=== PATIENT | female | born 1940 | race Caucasian/White ===

== ENCOUNTER 2017-10-30 16:28 | Emergency (ER) | payer OTHER ==
[2017-10-30 17:05] LABS: WHITE BLOOD COUNT 8.6 10^3/ul (4.8-10.8)
[2017-10-30 17:05] LABS: HEMATOCRIT 36.1 % (37.0-47.0); HEMOGLOBIN 11.9 g/dl (12.0-16.0); MEAN CORPUSCULAR HEMOGLOBIN 30.7 pg (29.0-33.0); MEAN CORPUSCULAR VOLUME 93.3 fl (82.0-101.0); MEAN PLATELET VOLUME 9.2 fl (7.4-10.4); PLATELET COUNT 273 10^3/UL (140-415); RED BLOOD COUNT 3.87 10^6/ul (4.20-5.40); RED CELL DISTRIBUTION WIDTH 13.2 % (11.5-14.5)
[2017-10-30 17:08] LABS: ADD MAN DIFF? YES
[2017-10-30] MEDS: DIAZEPAM 5 MG/ML SYG IV (17:11)
[2017-10-30] MEDS: SOD CHLORIDE 0.9% 1,000 ML IV (17:11)
[2017-10-30 17:25] LABS: INR 0.86; PROTIME 11.8 Sec (11.9-14.9); PT RATIO 0.9
[2017-10-30 17:29] LABS: ANION GAP 16 (8-16); BLOOD UREA NITROGEN 22 mg/dl (7-20); CALCIUM 9.2 mg/dl (8.4-10.2); CARBON DIOXIDE 23 mmol/L (21-31); CHLORIDE 103 mmol/L (97-110); CREATININE 0.79 mg/dl (0.44-1.00); GLUCOSE 167 mg/dl (70-220); POTASSIUM 5.6 mmol/L (3.5-5.1); SODIUM 136 mmol/L (135-144)
[2017-10-30] MEDS ORDERED: ONDANSETRON 4 MG INJ (17:37)
[2017-10-30 17:56] LABS: TROPONIN-I < 0.012 ng/ml (0.000-0.120)
[2017-10-30 18:22] LABS: BAND NEUTROPHILS % (M) 1 % (0-4); EOSINOPHILS % (M) 3 % (0-7); LYMPHOCYTES #M 4.7 10^3/ul (0.8-2.9); LYMPHOCYTES % (M) 55 % (15-51); MONOCYTE #M 0.6 10^3/ul (0.3-0.9); MONOCYTES % (M) 7 % (0-11); PLATELET ESTIMATE NORMAL; SEG NEUT #M 2.9 10^3/ul (1.6-7.5); SEGMENTED NEUTROPHILS (M) % 34 % (39-77); SMUDGE%M 3 % (0-0)
[2017-10-30] MEDS: ONDANSETRON 4 MG INJ IV (18:25)
[2017-10-30 19:39] LABS: ADD UMIC YES; UR ASCORBIC ACID NEGATIVE (NEGATIVE); UR BILIRUBIN (Dip) NEGATIVE (NEGATIVE); UR BLOOD (Dip) NEGATIVE (NEGATIVE); UR CLARITY CLEAR (CLEAR); UR COLOR YELLOW (YELLOW); UR GLUCOSE (Dip) NEGATIVE (NEGATIVE); UR KETONES (Dip) NEGATIVE (NEGATIVE); UR LEUKOCYTE ESTERASE (Dip) 1+ Leu/ul (NEGATIVE); UR NITRITE (Dip) NEGATIVE (NEGATIVE); UR RBC 1 /HPF (0-5); UR SPECIFIC GRAVITY (Dip) 1.015 (1.003-1.030); UR TOTAL PROTEIN (Dip) NEGATIVE (NEGATIVE); UR UROBILINOGEN (Dip) NEGATIVE (NEGATIVE); UR WBC 4 /HPF (0-5)
== END 2017-10-30 21:12 | disposition home or self-care (01) ==
LOC: E/R 16:28
DX: R42 Dizziness and giddiness (principal); D50.9 Iron deficiency anemia, unspecified; E87.5 Hyperkalemia; E86.0 Dehydration; R40.2142 Coma scale, eyes open, spontaneous, at arrival to emergency department; R40.2252 Coma scale, best verbal response, oriented, at arrival to emergency department; R40.2362 Coma scale, best motor response, obeys commands, at arrival to emergency department; J44.9 Chronic obstructive pulmonary disease, unspecified
CPT/HCPCS: 36415; 70450; 71045; 80048; 81001; 82962; 84484; 85025; 85610; 93005; 96374; 96375; 99285-25

== ENCOUNTER 2018-10-25 16:48 | Emergency (ER) | payer OTHER ==
[2018-10-25 17:44] LABS: URINE BLOOD (Dip) POC Negative (NEGATIVE); URINE GLUCOSE (Dip) POC Negative (NEGATIVE); URINE KETONES (Dip) POC Negative (NEGATIVE); URINE LEUKOCYTE EST (Dip) POC Negative (NEGATIVE); URINE NITRITE (Dip) POC Negative (NEGATIVE); URINE TOTAL PROTEIN POC Negative (NEGATIVE)
== END 2018-10-25 18:05 | disposition home or self-care (01) ==
LOC: FTE 16:48
DX: J32.9 Chronic sinusitis, unspecified (principal); J44.9 Chronic obstructive pulmonary disease, unspecified; R35.8 Other polyuria
CPT/HCPCS: 81003; 99283

== ENCOUNTER 2018-12-09 17:27 | Inpatient (IN) | payer OTHER ==
[2018-12-09] MEDS: CEFTRIAXONE 1 GM/50 ML (PMX) 50 ML IVPB (17:52)
[2018-12-09] MEDS: ACETAMINOPHEN 325 MG TAB PO (17:52)
[2018-12-09] MEDS: SODIUM CHLORIDE 0.9% 1L BAG IV* (17:52)
[2018-12-09 17:53] LABS: ADD UMIC YES; UR ASCORBIC ACID NEGATIVE (NEGATIVE); UR BILIRUBIN (Dip) NEGATIVE (NEGATIVE); UR BLOOD (Dip) 1+ mg/dL (NEGATIVE); UR CLARITY CLEAR (CLEAR); UR COLOR STRAW (YELLOW); UR GLUCOSE (Dip) NEGATIVE (NEGATIVE); UR KETONES (Dip) NEGATIVE (NEGATIVE); UR LEUKOCYTE ESTERASE (Dip) 1+ Leu/ul (NEGATIVE); UR NITRITE (Dip) NEGATIVE (NEGATIVE); UR RBC 1 /HPF (0-5); UR SPECIFIC GRAVITY (Dip) 1.005 (1.003-1.030); UR TOTAL PROTEIN (Dip) NEGATIVE (NEGATIVE); UR UROBILINOGEN (Dip) NEGATIVE (NEGATIVE); UR WBC 18 /HPF (0-5)
[2018-12-09 17:54] LABS: WHITE BLOOD COUNT 10.3 10^3/ul (4.8-10.8)
[2018-12-09 17:54] LABS: ADD MAN DIFF? NO; BASOPHIL # 0.1 10^3/ul (0.0-0.1); BASOPHILS % 0.5 % (0.0-2.0); EOSINOPHILS % 0.3 % (0.0-7.0); HEMATOCRIT 37.8 % (37.0-47.0); HEMOGLOBIN 12.3 g/dl (12.0-16.0); LYMPHOCYTES # 2.3 10^3/ul (0.8-2.9); LYMPHOCYTES % 21.8 % (15.0-51.0); MEAN CORPUSCULAR HEMOGLOBIN 29.9 pg (29.0-33.0); MEAN CORPUSCULAR HGB CONC 32.5 g/dl (32.0-37.0); MEAN PLATELET VOLUME 9.4 fl (7.4-10.4); MONOCYTE # 0.8 10^3/ul (0.3-0.9); MONOCYTES % 7.3 % (0.0-11.0); NEUTROPHIL # 7.2 10^3/ul (1.6-7.5); NEUTROPHILS % 69.7 % (39.0-77.0); PLATELET COUNT 223 10^3/UL (140-415); RED BLOOD COUNT 4.11 10^6/ul (4.20-5.40); RED CELL DISTRIBUTION WIDTH 14.2 % (11.5-14.5)
[2018-12-09 18:11] LABS: ALANINE AMINOTRANSFERASE 22 IU/L (13-69); ALBUMIN 4.6 g/dl (3.3-4.9); ALBUMIN/GLOBULIN RATIO 1.24; ALKALINE PHOSPHATASE 64 IU/L (42-121); ANION GAP 11 (5-13); ASPARTATE AMINO TRANSFERASE 25 IU/L (15-46); BILIRUBIN,INDIRECT 0.6 mg/dl (0-1.1); BILIRUBIN,TOTAL 0.6 mg/dl (0.2-1.3); BLOOD UREA NITROGEN 12 mg/dl (7-20); CALCIUM 9.4 mg/dl (8.4-10.2); CARBON DIOXIDE 27 mmol/L (21-31); CHLORIDE 100 mmol/L (97-110); CREATININE 0.86 mg/dl (0.44-1.00); GLUCOSE 135 mg/dl (70-220); SODIUM 138 mmol/L (135-144); TOTAL PROTEIN 8.3 g/dl (6.1-8.1)
[2018-12-09 18:13] LABS: PARTIAL THROMBOPLASTIN TIME 25.5 Sec (23.0-35.0); PROTIME 12.3 Sec (11.9-14.9)
[2018-12-09 18:23] LABS: TROPONIN-I < 0.012 ng/ml (0.000-0.120)
[2018-12-09] MEDS: ONDANSETRON 4 MG INJ IV (19:06)
[2018-12-09] MEDS: morphine 2 MG INJ IV (19:06)
[2018-12-09] MEDS: LORATADINE/PSEUDOEPHED (SR) TAB PO (20:05)
[2018-12-09 20:06] LABS: LACTIC ACID 0.8 mmol/L (0.5-2.0)
[2018-12-09 22:36] LABS: LACTIC ACID 0.6 mmol/L (0.5-2.0)
[2018-12-10] MEDS ORDERED: ALBUTEROL 18 GM INHALER INH (01:00)
[2018-12-10] MEDS ORDERED: NACL 0.9% 3 ML SYG IV (01:00)
[2018-12-10] MEDS ORDERED: HYDROCODONE/APAP (5/325) TAB PO (01:00)
[2018-12-10] MEDS: SOD CHLORIDE 0.9% 1,000 ML IV ×2 (01:01→13:11)
[2018-12-10] MEDS: HYDROCODONE/APAP (5/325) TAB PO ×2 (01:06→13:10)
[2018-12-10 05:09] LABS: ADD MAN DIFF? NO
[2018-12-10 05:22] LABS: WHITE BLOOD COUNT 8.1 10^3/ul (4.8-10.8)
[2018-12-10 05:22] LABS: BASOPHILS % 0.5 % (0.0-2.0); EOSINOPHILS % 0.2 % (0.0-7.0); HEMATOCRIT 33.6 % (37.0-47.0); HEMOGLOBIN 11.1 g/dl (12.0-16.0); LYMPHOCYTES # 1.3 10^3/ul (0.8-2.9); LYMPHOCYTES % 16.5 % (15.0-51.0); MEAN CORPUSCULAR HEMOGLOBIN 30.5 pg (29.0-33.0); MEAN CORPUSCULAR VOLUME 92.3 fl (82.0-101.0); MEAN PLATELET VOLUME 9.4 fl (7.4-10.4); MONOCYTE # 0.7 10^3/ul (0.3-0.9); MONOCYTES % 8.2 % (0.0-11.0); NEUTROPHILS % 74.2 % (39.0-77.0); PLATELET COUNT 178 10^3/UL (140-415); RED BLOOD COUNT 3.64 10^6/ul (4.20-5.40); RED CELL DISTRIBUTION WIDTH 14.2 % (11.5-14.5)
[2018-12-10 05:46] LABS: ALANINE AMINOTRANSFERASE 19 IU/L (13-69); ALBUMIN 3.6 g/dl (3.3-4.9); ALBUMIN/GLOBULIN RATIO 1.24; ALKALINE PHOSPHATASE 56 IU/L (42-121); ANION GAP 5 (5-13); ASPARTATE AMINO TRANSFERASE 21 IU/L (15-46); BILIRUBIN,INDIRECT 0.6 mg/dl (0-1.1); BILIRUBIN,TOTAL 0.6 mg/dl (0.2-1.3); BLOOD UREA NITROGEN 9 mg/dl (7-20); CALCIUM 8.4 mg/dl (8.4-10.2); CARBON DIOXIDE 26 mmol/L (21-31); CHLORIDE 110 mmol/L (97-110); CREATININE 0.65 mg/dl (0.44-1.00); GLUCOSE 123 mg/dl (70-220); MAGNESIUM 2.2 mg/dl (1.7-2.5); PHOSPHORUS 2.9 mg/dl (2.5-4.9); POTASSIUM 3.8 mmol/L (3.5-5.1); SODIUM 141 mmol/L (135-144); TOTAL PROTEIN 6.5 g/dl (6.1-8.1)
[2018-12-10] MEDS: MONTELUKAST 10 MG TAB PO (08:38)
[2018-12-10] MEDS: LORATADINE 10 MG TAB PO (08:39)
[2018-12-10] MEDS: FLUTICASONE/VILANTEROL 100-25 INH (08:39)
[2018-12-10] MEDS: HEPARIN 5,000 UNIT/1 ML VIAL SC ×2 (08:41→22:27)
[2018-12-10] MEDS: ONDANSETRON 4 MG INJ IV (10:43)
[2018-12-10] MEDS: ACETAMINOPHEN 325 MG TAB PO ×2 (10:43→22:26)
[2018-12-10] MEDS: metroNIDAZOLE 500 MG TAB NGT ×2 (14:06→22:26)
[2018-12-10] MEDS: FAMOTIDINE 20 MG TAB PO (14:06)
[2018-12-10] MEDS: CEFTRIAXONE 1 GM/50 ML (PMX) 50 ML IVPB (17:15)
[2018-12-10 18:25] LABS: CANCER ANTIGEN 125 8.9 U/ml (0.0-35.0)
[2018-12-10] MEDS ORDERED: ALBUTEROL HFA 8 GM INHALER INH (21:00)
[2018-12-10] MEDS: DOCUSATE SODIUM 100 MG CAP PO (22:26)
[2018-12-11] MEDS: HYDROCODONE/APAP (5/325) TAB PO ×2 (00:47→22:21)
[2018-12-11 05:40] LABS: ADD MAN DIFF? NO
[2018-12-11 05:47] LABS: BASOPHILS % 0.4 % (0.0-2.0); EOSINOPHILS % 0.3 % (0.0-7.0); HEMATOCRIT 33.1 % (37.0-47.0); HEMOGLOBIN 10.6 g/dl (12.0-16.0); LYMPHOCYTES # 1.7 10^3/ul (0.8-2.9); LYMPHOCYTES % 24.9 % (15.0-51.0); MEAN CORPUSCULAR HEMOGLOBIN 30.2 pg (29.0-33.0); MEAN CORPUSCULAR VOLUME 94.3 fl (82.0-101.0); MONOCYTE # 0.7 10^3/ul (0.3-0.9); MONOCYTES % 10.5 % (0.0-11.0); NEUTROPHIL # 4.4 10^3/ul (1.6-7.5); NEUTROPHILS % 63.5 % (39.0-77.0); PLATELET COUNT 181 10^3/UL (140-415); RED BLOOD COUNT 3.51 10^6/ul (4.20-5.40); RED CELL DISTRIBUTION WIDTH 14.4 % (11.5-14.5)
[2018-12-11 05:47] LABS: WHITE BLOOD COUNT 6.9 10^3/ul (4.8-10.8)
[2018-12-11 06:09] LABS: ANION GAP 6 (5-13); BLOOD UREA NITROGEN 9 mg/dl (7-20); CALCIUM 8.5 mg/dl (8.4-10.2); CARBON DIOXIDE 27 mmol/L (21-31); CHLORIDE 107 mmol/L (97-110); CREATININE 0.66 mg/dl (0.44-1.00); GLUCOSE 127 mg/dl (70-220); MAGNESIUM 2.2 mg/dl (1.7-2.5); PHOSPHORUS 3.2 mg/dl (2.5-4.9); POTASSIUM 4.1 mmol/L (3.5-5.1); SODIUM 140 mmol/L (135-144)
[2018-12-11] MEDS: metroNIDAZOLE 500 MG TAB NGT ×3 (06:40→21:40)
[2018-12-11] MEDS: LACTOBACILLUS RHAMNOSUS CAP PO ×2 (08:57→21:41)
[2018-12-11] MEDS: LORATADINE 10 MG TAB PO (08:57)
[2018-12-11] MEDS: FLUTICASONE/VILANTEROL 100-25 INH (08:57)
[2018-12-11] MEDS: DOCUSATE SODIUM 100 MG CAP PO ×2 (08:57→21:41)
[2018-12-11] MEDS: SOD CHLORIDE 0.9% 1,000 ML IV (08:57)
[2018-12-11] MEDS: FAMOTIDINE 20 MG TAB PO ×2 (08:57→21:41)
[2018-12-11] MEDS: MONTELUKAST 10 MG TAB PO (08:57)
[2018-12-11] MEDS: HEPARIN 5,000 UNIT/1 ML VIAL SC ×2 (09:01→21:43)
[2018-12-11] MEDS ORDERED: ALBUTEROL 0.083% (NEB) 2.5 MG/3 ML AMP HHN (13:30)
[2018-12-11] MEDS: CALCIUM CARBONATE 500 MG CHEW TAB PO (17:39)
[2018-12-11] MEDS: CEFTRIAXONE 1 GM/50 ML (PMX) 50 ML IVPB (17:40)
[2018-12-11] MEDS: ACETAMINOPHEN 325 MG TAB PO (17:44)
[2018-12-11] MEDS: ALBUTEROL/IPRATROPIUM (NEB) 3 ML AMP HHN (22:12)
[2018-12-12] MEDS: metroNIDAZOLE 500 MG TAB NGT (06:36)
[2018-12-12] MEDS: ALBUTEROL/IPRATROPIUM (NEB) 3 ML AMP HHN (08:25)
[2018-12-12] MEDS: LORATADINE 10 MG TAB PO (08:31)
[2018-12-12] MEDS: FAMOTIDINE 20 MG TAB PO (08:31)
[2018-12-12] MEDS: LACTOBACILLUS RHAMNOSUS CAP PO (08:31)
[2018-12-12] MEDS: MONTELUKAST 10 MG TAB PO (08:32)
[2018-12-12] MEDS: HEPARIN 5,000 UNIT/1 ML VIAL SC (08:34)
[2018-12-12] MEDS: FLUTICASONE/VILANTEROL 100-25 INH (08:34)
[2018-12-12] MEDS: DOCUSATE SODIUM 100 MG CAP PO (08:35)
[2018-12-12] MEDS: GUAIFENESIN LA 600 MG TABSR PO (11:51)
[2018-12-12] MEDS: LEVOFLOXACIN 500 MG TAB PO (11:51)
[2018-12-12] MEDS: ALBUTEROL HFA 8 GM INHALER INH (11:51)
[2018-12-12] MEDS: BUDESONIDE (NEB) 0.5MG/2ML AMP HHN (12:34)
[2018-12-12] MEDS ORDERED: GUAIFENESIN LA 600 MG TABSR PO (21:00)
[2018-12-13] MEDS ORDERED: LEVOFLOXACIN 250 MG TAB PO (06:00)
== END 2018-12-12 13:38 | disposition home or self-care (01) | DRG 872 ==
LOC: MS1 12-10 00:33 → E/R 17:27 → MS1 19:57
DX: A41.9 Sepsis, unspecified organism (principal); N39.0 Urinary tract infection, site not specified; Z99.81 Dependence on supplemental oxygen; R19.09 Other intra-abdominal and pelvic swelling, mass and lump; D23.9 Other benign neoplasm of skin, unspecified; R32 Unspecified urinary incontinence; J45.909 Unspecified asthma, uncomplicated; K52.9 Noninfective gastroenteritis and colitis, unspecified; N81.10 Cystocele, unspecified; K21.9 Gastro-esophageal reflux disease without esophagitis; B96.20 Unspecified Escherichia coli [E. coli] as the cause of diseases classified elsewhere
CPT/HCPCS: 36415; 71045; 72196; 74176; 80048; 80053; 81001; 83605; 83735; 84100; 84484; 85025; 85610; 85730; 86304; 87040-91; 87086; 93005; 94640; 94664; 96361; 96365; 99285-25